=== PATIENT | male | born 1975 | race Caucasian/White ===

== ENCOUNTER 2016-12-02 10:51 | Emergency (ER) | payer BC ==
[2016-12-02] MEDS ORDERED: KETOROLAC TROMETHAMINE 60 MG/2 ML VIAL IM ONE ×2 (12:07→12:15)
--- NOTE | 2016-12-02 12:14 | ERNOTE ---
Back Pain ER HPI Date of Service: 12/02/16 Time Seen by Provider: 12/02/16 11:53 Source: patient Exam Limitations: no limitations Immunizations: IMMUNIZATION HX Immunizations Up to Date Yes History of Influenza Vaccine Yes Hx Pneumococcal Vaccination No Allergies/Adverse Reactions: Allergies No Known Allergies Allergy (Verified 12/02/16 11:02) Home Medications: HOME MEDICATIONS Cyclobenzaprine HCl [Flexeril] 10 mg PO TID PRN #30 tab 12/02/16 [Last Taken Unknown] Naproxen [Naprosyn] 500 mg PO BID PRN #60 tab 12/02/16 [Last Taken Unknown] Narrative: Pt. comes in with c/o L post rib pain below shoulder blade after he was at work yesterday. Pt. states that he is very active and has a history of back pain and does alot of heavy lifting for his job. Pt. denies any specific injury to his back. Pt. states that he tried biofreeze and advil yesterday with mild relief but it does not make movement tolerable. Review of Systems - Review of Systems Constitutional: Present: no symptoms reported. Absent: recent illness, fever, chills, weakness, fatigue, malaise EYE: Present: no symptoms reported ENT: Present: no symptoms reported Respiratory: Present: no symptoms reported. Absent: shortness of breath, cough , wheezing Cardiology: Present: no symptoms reported. Absent: chest pain, palpitations, edema Gastrointestinal/Abdominal: Present: no symptoms reported. Absent: nausea, vomiting, diarrhea Genitourinary: Present: no symptoms reported. Absent: frequency, pain, dysuria , decreased urinary output Musculoskeletal: Present: back pain, muscle pain - R lateral post ribs. Absent : neck pain, joint pain Skin: Present: no symptoms reported. Absent: rash, change in color Neurological: Present: no symptoms reported. Absent: headache, dizziness/light- headedness, numbness, tingling Endocrine: Present: no symptoms reported Hematologic/Lymphatic: Present: no symptoms reported All Other Systems: All systems neg except as marked - Patient's Past Medical History Patient History - Medical: Chronic Pain - Social History Living Situations: alone Abuse History: No History of abuse Psych History: No pertinent hx Smoking Status: Former smoker Alcohol Use: none Drug Use: none - Immunizations Immunizations Up to Date: Yes Hx Pneumococcal Vaccination: No History of Influenza Vaccine: Yes Physical Exam - Physical Exam General Appearance: Present: wd/wn, alert, no apparent distress Eye Exam: Normal inspection: bilateral, PERRL: bilateral, EOMI: bilateral Ears, Nose, Throat: Present: normal ENT inspection, normal pharynx Neck: Present: normal inspection, nontender. Absent: lymphadenopathy (R), lymphadenopathy (L) Respiratory: Present: no respiratory distress, normal breath sounds, no accessory muscle use, chest nontender, lungs clear Cardiovascular/Chest: Present: regular rate, rhythm, no murmur, normal peripheral pulses Gastrointestinal/Abdominal: Present: normal bowel sounds, nontender, nondistended, soft, no organomegaly Back Exam: Present: no CVA tenderness, no vertebral tenderness, decreased range of motion - bending and twisting limited due to pain Extremity Exam: Present: non-tender, no edema, decreased range of motion - active against counter pressure decreased Neurological Exam: Present: alert, oriented, normal mood/affect, no motor/ sensory deficits Skin Exam: Present: normal color, warm/dry. Absent: pallor, skin rash ED Progress - Vital Signs Patient's Vital Signs:: I have reviewed the patient's vital signs. Vital Signs: Vital Signs 12/02/16 10:56 Temperature 36.5 C Pulse Rate 93 Respiratory 20 Rate Blood Pressure 142/111 O2 Sat by Pulse 100 Oximetry - X-Ray X-Ray #1 X-Ray: ribs Interpretation: Reviewed by me X-ray Comments: no fracture - Progress/Reassessment Chief Complaint: Back Pain Departure Clinical Impression: Strain of latissimus dorsi muscle Qualifiers: Encounter type: initial encounter Qualified Code(s): S29.012A - Strain of muscle and tendon of back wall of thorax, initial encounter - Departure Disposition: Home self-care Condition: Good Instructions: RICE for Routine Care of Injuries, [id number], Shoulder Sprain , Form - Excuse from Work, School, or Physical Activity Additional Instructions: No lifting for 1 week. Do stretches of latissimus daily. If not improved in 1 week please ollow up with orthopedic provider. Referrals: Bebeto Coombs MD [Primary Care Provider] - Jhon Woo MD [Staff Physician] - Prescriptions: Cyclobenzaprine HCl [Flexeril] 10 mg PO TID PRN #30 tab PRN Reason: MUSCLE SPASMS Naproxen [Naprosyn] 500 mg PO BID PRN #60 tab PRN Reason: Pain
[2016-12-02 13:51] VITALS: BP 143/69
== END 2016-12-02 13:52 | disposition home or self-care (01) ==
LOC: ER 10:51
DX: S29.012A Strain of muscle and tendon of back wall of thorax, initial encounter (principal)

== ENCOUNTER 2017-03-25 15:39 | Emergency (ER) | payer BC ==
[2017-03-25 16:01] VITALS: BP 139/92
--- NOTE | 2017-03-25 16:18 | ERNOTE ---
Integumentary HPI - Narrative Date of Service: 03/25/17 - General Presenting Symptoms: rash Time Seen by Provider: 03/25/17 16:15 Source: patient Exam Limitations: no limitations - Immun/Allergies/Home Medications Immunizations: IMMUNIZATION HX Immunizations Up to Date Yes History of Influenza Vaccine Yes Hx Pneumococcal Vaccination No Allergies/Adverse Reactions: Allergies Allergy/AdvReac Type Severity Reaction Status Date / Time No Known Allergies Allergy Verified 03/25/17 16:01 Home Medications: HOME MEDICATIONS NK [No Home Medication] 03/25/17 [Last Taken Unknown] - History of Present Illness Narrative: Healthy 41-year-old white male presents with a rash. Patient developed a pruritic rash yesterday. He states he has poison micheline. He has had this throughout his life. He has no systemic signs of illness. He has had exposure to poison micheline. No fever or chills. The rash is moderate and is worsening. Review of Systems - Review of Systems Constitutional: Present: no symptoms reported EYE: Present: no symptoms reported ENT: Present: no symptoms reported Respiratory: Present: no symptoms reported Cardiology: Present: no symptoms reported Gastrointestinal/Abdominal: Present: no symptoms reported Genitourinary: Present: no symptoms reported Musculoskeletal: Present: no symptoms reported Skin: Present: rash Neurological: Present: no symptoms reported Endocrine: Present: no symptoms reported All Other Systems: All systems neg except as marked - Patient's Past Medical History Patient History - Medical: No pertinent hx Patient History - Cardiac/Respiratory: No pertinent hx Patient History - Cancer: No Hx of Cancer Patient History - Surgical Procedures: No surgical history Patient History - Other: None - Social History Living Situations: home Abuse History: No History of abuse Psych History: No pertinent hx Smoking Status: Never smoker Alcohol Use: occasionally Drug Use: none - Immunizations Immunizations Up to Date: Yes Hx Pneumococcal Vaccination: No History of Influenza Vaccine: Yes Physical Exam - Physical Exam General Appearance: Present: wd/wn, alert, no apparent distress Head Exam: Present: normal inspection Ears, Nose, Throat: Present: normal ENT inspection Neck: Present: normal inspection Respiratory: Present: no respiratory distress, normal breath sounds, no accessory muscle use, lungs clear Cardiovascular/Chest: Present: regular rate, rhythm, no murmur, normal peripheral pulses Skin Exam: Present: other - generalized erythematous maculopapular patchy rash consistent with poison micheline ED Progress - Vital Signs Vital Signs: Vital Signs 03/25/17 15:58 Temperature 37.0 C Pulse Rate 84 Respiratory 16 Rate Blood Pressure 139/92 O2 Sat by Pulse 98 Oximetry - Progress/Reassessment Chief Complaint: Rash Departure Clinical Impression: Poison micheline dermatitis - Departure Disposition: Home self-care Condition: Good Instructions: Poison Micheline Dermatitis, [id number] Referrals: Bebeto Coombs MD [Primary Care Provider] -
== END 2017-03-25 16:29 | disposition home or self-care (01) ==
LOC: ER 15:39
DX: L23.7 Allergic contact dermatitis due to plants, except food (principal)